=== PATIENT | male | born 1975 | race Caucasian/White ===

== ENCOUNTER 2019-03-15 19:11 | Emergency (ER) | payer SELFPAY, OTHER, MEDICAID ==
[2019-03-15] MEDS: HYDROCODONE/APAP (5/325) TAB PO (22:06)
== END 2019-03-16 00:13 | disposition home or self-care (01) ==
LOC: FTE 03-16 00:13
DX: S02.2XXA Fracture of nasal bones, initial encounter for closed fracture (principal); F17.210 Nicotine dependence, cigarettes, uncomplicated; Y04.8XXA Assault by other bodily force, initial encounter
CPT/HCPCS: 70480; 99284-25